=== PATIENT | male | born 1955 | race Caucasian/White ===

== ENCOUNTER 2020-05-08 09:06 | Inpatient (IN) | payer OTHER ==
[~2020-05-08] VITALS: Ht 175.3 cm; Wt 90.7 kg
[2020-05-08 09:15] VITALS: Ht 175.3 cm; Wt 90.7 kg
[2020-05-08 09:55] LABS: CALCIUM 9.7 mg/dL (8.5-10.1); CARBON DIOXIDE 27.6 mmol/L (21-32); CREATININE SERUM 1.3 mg/dL (0.7-1.3); POTASSIUM SERUM 3.1 mmol/L (3.5-5.1)
[2020-05-08 09:59] LABS: BILIRUBIN TOTAL 6.4 mg/dL (0.20-1.00); TOTAL PROTEIN, SERUM 6.9 g/dL (6.4-8.2)
[2020-05-08 10:02] LABS: BASOPHIL % 0.3 % (0-2)
[2020-05-08 10:12] LABS: PLATELET COUNT 123 x10^3mcL (130-400); RED CELL DISTRIBUTION WIDTH 15.8 % (11.5-14.5)
[2020-05-08 10:19] LABS: ALBUMIN 2.9 g/dL (3.4-5.0)
[2020-05-08 11:01] LABS: UA SPECIFIC GRAVITY 1.025 (1.005-1.035); microscopic required? YES; urine erythrocyte NEGATIVE (NEGATIVE)
[2020-05-08 14:03] VITALS: BP 166/100
[2020-05-08 16:20] VITALS: BP 189/99
[2020-05-08 21:14] VITALS: BP 183/106
[2020-05-08 22:30] VITALS: BP 167/94
[2020-05-09 05:43] VITALS: BP 162/104
[2020-05-09 06:41] LABS: BILIRUBIN DIRECT 1.52 mg/dL (0.0-0.2); BILIRUBIN TOTAL 2.38 mg/dL (0.20-1.00); TOTAL PROTEIN, SERUM 6.8 g/dL (6.4-8.2)
[2020-05-09 06:43] LABS: ALBUMIN 2.7 g/dL (3.4-5.0)
[2020-05-09 07:15] VITALS: BP 174/108
[2020-05-09 11:03] LABS: BASOPHIL % 1.1 % (0-2); PLATELET COUNT 143 x10^3mcL (130-400)
[2020-05-09 11:21] LABS: RED CELL DISTRIBUTION WIDTH 16.2 % (11.5-14.5)
[2020-05-09 11:52] LABS: BILIRUBIN TOTAL 2.4 mg/dL (0.20-1.00); CALCIUM 8.4 mg/dL (8.5-10.1); CHLORIDE SERUM 103 mmol/L (98-107); CREATININE SERUM 1.2 mg/dL (0.7-1.3); GFR1 > 60 mL/min; GLUCOSE SERUM 183 mg/dL (74-106); POTASSIUM SERUM 3.3 mmol/L (3.5-5.1); SODIUM SERUM 137 mmol/L (136-145); TOTAL PROTEIN, SERUM 6.4 g/dL (6.4-8.2)
[2020-05-09 11:53] LABS: ALBUMIN 2.7 g/dL (3.4-5.0)
[2020-05-09 12:02] VITALS: BP 168/93
[2020-05-09 12:24] LABS: ALKALINE PHOSPHATASE 451 U/L (46-116); ALT/SGPT 292 U/L (16-63); AST/SGOT 96 U/L (15-37)
[2020-05-09 16:07] VITALS: BP 169/81
[2020-05-09 19:50] VITALS: BP 118/82
[2020-05-10 04:53] VITALS: BP 166/90
[2020-05-10 06:52] LABS: BASOPHIL % 0.1 % (0-2); PLATELET COUNT 137 x10^3mcL (130-400)
[2020-05-10 07:13] VITALS: BP 162/99
[2020-05-10 07:24] LABS: CALCIUM 8.8 mg/dL (8.5-10.1); CARBON DIOXIDE 27.2 mmol/L (21-32); CREATININE SERUM 1.5 mg/dL (0.7-1.3); POTASSIUM SERUM 3.2 mmol/L (3.5-5.1)
[2020-05-10 12:15] VITALS: BP 152/87
[2020-05-10 16:38] VITALS: BP 155/85
[2020-05-10 20:01] VITALS: BP 176/100
[2020-05-11 04:19] VITALS: BP 131/63
[2020-05-11 06:38] LABS: BASOPHIL % 0.7 % (0-2); PLATELET COUNT 139 x10^3mcL (130-400)
[2020-05-11 06:57] LABS: ALBUMIN 2.4 g/dL (3.4-5.0); ALKALINE PHOSPHATASE 484 U/L (46-116); ALT/SGPT 231 U/L (16-63); AST/SGOT 93 U/L (15-37); BILIRUBIN TOTAL 2.54 mg/dL (0.20-1.00); CALCIUM 8.6 mg/dL (8.5-10.1); CHLORIDE SERUM 103 mmol/L (98-107); CREATININE SERUM 1.2 mg/dL (0.7-1.3); GFR1 > 60 mL/min; GLUCOSE SERUM 124 mg/dL (74-106); LIPASE 954 IU/L (73-393); POTASSIUM SERUM 3.2 mmol/L (3.5-5.1); SODIUM SERUM 138 mmol/L (136-145); TOTAL PROTEIN, SERUM 6.1 g/dL (6.4-8.2)
[2020-05-11 07:13] LABS: RED CELL DISTRIBUTION WIDTH 15.9 % (11.5-14.5)
[2020-05-11 08:14] VITALS: BP 162/94
[2020-05-11 11:50] VITALS: BP 151/91
[2020-05-11 13:39] VITALS: BP 151/91
[2020-05-11] MEDS ORDERED: LEVAQUIN500 M1 PO (14:35)
== END 2020-05-11 15:34 | disposition home or self-care (01) | DRG 263 ==
LOC: ED 09:06 → DU 12:08
PROVIDERS: Emergency Medicine; Internal Medicine Gastroenterology; ADMIT Internal Medicine; ATTEND Internal Medicine
PROC: 0FT44ZZ Resection of Gallbladder, Percutaneous Endoscopic Approach (ICD-10-PCS; principal; 2020-05-09 09:00)
PROC: 0FC98ZZ Extirpation of Matter from Common Bile Duct, Via Natural or Artificial Opening Endoscopic (ICD-10-PCS; 2020-05-09 09:00)
DX: K80.20 Calculus of gallbladder without cholecystitis without obstruction (principal); K85.90 Acute pancreatitis without necrosis or infection, unspecified; D69.6 Thrombocytopenia, unspecified; E11.9 Type 2 diabetes mellitus without complications; K83.8 Other specified diseases of biliary tract; I10 Essential (primary) hypertension; R94.5 Abnormal results of liver function studies; Z88.0 Allergy status to penicillin; E78.5 Hyperlipidemia, unspecified; E66.9 Obesity, unspecified; Z68.1 Body mass index [BMI] 19.9 or less, adult; Z79.899 Other long term (current) drug therapy
CPT/HCPCS: 43262; 82962; C1769; C9113; G0378; J0690; J1610; J1885; J1956; J2250; J2405; J3010; J3480; J3490; J7030; J7120; Q0092; Q9967